=== PATIENT | female | born 1990 | race Caucasian/White ===

== ENCOUNTER 2022-10-23 05:30 | Inpatient (IN) | payer BC ==
[2022-10-23 06:49] VITALS: BMI 29.9
[2022-10-23 08:28] LABS: Mean Corpuscular HGB CONC 34.5 g/dL (32.0-36.0); Mean Corpuscular Hemoglobin 30.2 pg (27.0-33.0); Mean Corpuscular Volume 87.6 fl (81.6-98.3); Platelet Count 129 10x3/uL (150-450); RBC Distribution Width 12.8 % (11.5-14.5); Red Blood Cell (RBC) Count 3.64 10x6/uL (3.90-5.03); White Blood Cell (WBC) Count 6.4 10x3/uL (3.5-10.5)
[2022-10-23 08:43] LABS: SARS-CoV-2 NAA Rapid Test Not Detected (NotDetected)
[2022-10-23 08:55] LABS: HBSAg Index 0.16 S/CO (0-0.99); Hep B Surf Ag Non-Reactive S/CO (NonReactive)
[2022-10-23 08:57] LABS: Syphilis Antibody Nonreactive (Nonreactive)
[2022-10-23] MEDS ORDERED: NS w/ Oxytocin 30 units 500 ML ONE ×2 (14:37→16:29)
[2022-10-23] MEDS ORDERED: HYDROcodone/Acetaminophen 5/325 mg Tablet PO PRN (19:02)
[2022-10-23] MEDS ORDERED: Boostrix 0.5 ML (Tdap) VIAL (>/=7 yrs of age) IM ONE (19:02)
[2022-10-23] MEDS ORDERED: Benzocaine-Menthol 82.5 ML CAN TOP PRN (19:02)
[2022-10-23] MEDS ORDERED: Bisacodyl 10 MG SUPP PR PRN (19:02)
[2022-10-23] MEDS ORDERED: hydrALAZINE 20 MG/ML VIAL SLOW IVP PRN (19:02)
[2022-10-23] MEDS ORDERED: Milk Of Magnesia 30 ML UDCUP PO PRN (19:02)
[2022-10-23] MEDS ORDERED: Ferrous Sulfate 325 MG TAB PO SCH (19:15)
[2022-10-23] MEDS: Ibuprofen 800 MG TAB PO SCH (20:47)
[2022-10-23] MEDS: Docusate 100 MG CAP PO SCH (20:47)
[2022-10-24] MEDS: Ibuprofen 800 MG TAB PO SCH ×2 (05:16→14:16)
[2022-10-24] MEDS ORDERED: Ferrous Sulfate 325 MG TAB PO SCH (08:00)
[2022-10-24] MEDS: Docusate 100 MG CAP PO SCH (09:11)
[2022-10-24 16:07] VITALS: BP 112/62; TEMP 97.6
== END 2022-10-24 17:20 | disposition home or self-care (01) | DRG 807 ==
LOC: CSHLD 06:12 → CSHPED 18:00
PROVIDERS: ADMIT Family Medicine; ATTEND Family Medicine
PROC: 10E0XZZ Delivery of Products of Conception, External Approach (ICD-10-PCS; principal; 2022-10-23)
PROC: 3E0334Z Introduction of Serum, Toxoid and Vaccine into Peripheral Vein, Percutaneous Approach (ICD-10-PCS; 2022-10-23)
PROC: 10907ZC Drainage of Amniotic Fluid, Therapeutic from Products of Conception, Via Natural or Artificial Opening (ICD-10-PCS; 2022-10-23)
DX: O48.0 Post-term pregnancy (principal); Z37.0 Single live birth; O26.893 Other specified pregnancy related conditions, third trimester; Z20.822 Contact with and (suspected) exposure to COVID-19; O99.02 Anemia complicating childbirth; D64.9 Anemia, unspecified; Z67.11 Type A blood, Rh negative; Z3A.41 41 weeks gestation of pregnancy; Z79.899 Other long term (current) drug therapy; O36.63X0 Maternal care for excessive fetal growth, third trimester, not applicable or unspecified
CPT/HCPCS: 36415; 85027; 85461; 86780; 86850; 86900; 86901; 87340; 90384; 96372; U0002